=== PATIENT | female | born 1955 | race Caucasian/White ===

== ENCOUNTER 2017-04-02 08:14 | Emergency (ER) | payer BC, OTHER ==
--- NOTE | 2017-04-02 08:32 | EDM.PDOC ---
ED HPI GENERAL MEDICAL PROBLEM - General Chief Complaint: Neurological Problem Stated Complaint: VERTIGO Time Seen by Provider: 04/02/17 08:30 - History of Present Illness INITIAL COMMENTS - FREE TEXT/NARRATIVE: 61-year-old female presents emergency room with vertigo. The patient is visiting here from [facility] the were camping at the [place]. The patient denies any drugs or alcohol. The patient went to a show last evening and prior to going to bed felt a little dehydrated. She did take a walk yesterday but no strenuous activity. She noticed a little bit of neck tightness upon awakening this morning at approximately 7 AM the patient looked to the left to check on her and developed significant dizziness and nausea followed. The patient has been unable to walk without assistance and needed assistance coming into the emergency room. Patient states she had a head injury a couple years ago and had some vertigo after this but has otherwise been doing okay with no dizziness between then and now. The patient was noticed to have benign lesion in her brain. Her last MRI in October was normal. She is followed on an annual basis by neurosurgery for this. At this time the patient seems to be doing okay if she does not move. Looking to the left tends to aggravate the dizziness and nausea. Looking to the right does not bring on symptoms the patient has not noticed any weakness in her arms or legs no difficulty with speech. - Related Data Allergies Allergy/AdvReac Type Severity Reaction Status Date / Time No Known Allergies Allergy Verified 04/02/17 08:25 Home Meds: Home Meds Meclizine [Antivert] 25 mg PO Q6H PRN #20 tab.chew 04/02/17 [Rx] ED ROS GENERAL - Review of Systems Review Of Systems: See Below Constitutional: Reports: No Symptoms HEENT: Reports: Sinus Problem (She has mild sinus congestion no pressure), Vertigo, Other (No ringing or buzzing in her ears). Denies: Ear Pain, Eye Pain Respiratory: Reports: No Symptoms Cardiovascular: Reports: No Symptoms, Other (Patient normally has a low pulse in the 50s and low blood pressure) Endocrine: Reports: No Symptoms GI/Abdominal: Reports: Nausea. Denies: Abdominal Pain, Constipation, Diarrhea, Vomiting : Reports: No Symptoms Musculoskeletal: Reports: Neck Pain (This is normal for her) Neurological: Reports: Dizziness. Denies: Headache Psychiatric: Reports: Other (She has been under a lot of stress otherwise no problems) ED EXAM, GENERAL - Physical Exam Exam: See Below Exam Limited By: No Limitations General Appearance: Alert, No Apparent Distress Eye Exam: Bilateral Eye: EOMI, Normal Inspection, PERRL Ears: Normal External Exam, Normal Canal, Hearing Grossly Normal, Normal TMs Nose: Normal Inspection, Normal Mucosa, No Blood, Other (Sinuses nontender with percussion) Throat/Mouth: Normal Inspection, Normal Lips, Normal Teeth, Normal Gums, Normal Oropharynx, Normal Voice, No Airway Compromise Head: Atraumatic, Normocephalic Neck: Normal Inspection, Supple, Non-Tender, Full Range of Motion. No: Lymphadenopathy (L), Lymphadenopathy (R), Tender Lateral, Tender Midline Respiratory/Chest: No Respiratory Distress, Lungs Clear, Normal Breath Sounds, No Accessory Muscle Use Cardiovascular: Normal Peripheral Pulses, Regular Rate, Rhythm, No Edema, No Gallop, No JVD, No Murmur, No Rub Neurological: Other (Radial nerves II through XII grossly intact all muscle groups in upper and lower extremities recall appropriate bilaterally deep tendon reflexes are equal and appropriate at brachial radialis bilaterally. Hallpike's maneuver done which shows no nystagmus dizziness and nausea aggravated with the patient at full extension looking to the left and after sitting up looking to the left.) Course - Vital Signs Last Recorded V/S: Last Vital Signs Temp 37.0 C 04/02/17 08:25 Pulse 46 L 04/02/17 08:25 Resp 16 04/02/17 08:25 BP 114/64 04/02/17 08:25 Pulse Ox 100 04/02/17 08:25 - Orders/Labs/Meds Orders: Active Orders 24 hr Category Date Time Status Sodium Chloride 0.9% [Saline Flush] Med 04/02/17 11:19 Active 10 ml FLUSH ONETIME PRN Medication Orders Sodium Chloride (Saline Flush) 10 ml FLUSH ONETIME PRN PRN Reason: Keep Vein Open Last Admin: 04/02/17 12:23 Dose: 10 ml Labs: Laboratory Tests 04/02/17 04/02/17 04/02/17 Range/Units 10:00 10:00 10:00 WBC 15.92 H (3.98-10.04) K/mm3 RBC 4.52 (3.98-5.22) M/mm3 Hgb 13.6 (11.2-15.7) gm/L Hct 40.9 (34.1-44.9) % MCV 90.5 (79.4-94.8) fl MCH 30.1 (25.6-32.2) pg MCHC 33.3 (32.2-35.5) g/dl RDW Std Deviation 44.0 (36.4-46.3) fL Plt Count 237 (182-369) K/mm3 MPV 11.0 (9.4-12.3) fl Neutrophils % (Manual) 87 H (40-60) % Band Neutrophils % 0 (0-10) % Lymphocytes % (Manual) 10 L (20-40) % Atypical Lymphs % 0 % Monocytes % (Manual) 3 (2-10) % Eosinophils % (Manual) 0 L (0.7-5.8) % Basophils % (Manual) 0 L (0.1-1.2) Platelet Estimate Adequate RBC Morph Comment Normal ESR 8 (0-20) mm/hr Sodium 144 (136-145) mEq/L Potassium 3.9 (3.5-5.1) mEq/L Chloride 109 H (98-107) mEq/L Carbon Dioxide 26 (21-32) mEq/L Anion Gap 12.9 (5-15) BUN 32 H (7-18) mg/dL Creatinine 0.9 (0.55-1.02) mg/dL Est Cr Clr Drug Dosing 59.07 mL/min Estimated GFR (MDRD) > 60 (>60) mL/min BUN/Creatinine Ratio 35.6 H (14-18) Glucose 133 H (80-115) mg/dL Calcium 9.7 (8.5-10.1) mg/dL Magnesium 2.0 (1.8-2.4) mg/dl Total Bilirubin 0.5 (0.2-1.0) mg/dL AST 17 (15-37) U/L ALT 20 (14-59) U/L Alkaline Phosphatase 65 (46-116) U/L C-Reactive Protein < 0.2 (<1.0) mg/dL Total Protein 6.9 (6.4-8.2) g/dl Albumin 3.7 (3.4-5.0) g/dl Globulin 3.2 gm/dL Albumin/Globulin Ratio 1.2 (1-2) Meds: Medications Generic Name Dose Route Start Last Admin Trade Name Freq PRN Reason Stop Dose Admin Sodium Chloride 10 ml 04/02/17 11:19 04/02/17 12:23 Saline Flush FLUSH 10 ml ONETIME PRN Administration Keep Vein Open Discontinued Medications Generic Name Dose Route Start Last Admin Trade Name Freq PRN Reason Stop Dose Admin Gadobenate Dimeglumine 17 ml 04/02/17 11:19 04/02/17 12:23 Multihance IVPUSH 04/02/17 11:20 17 ml ONETIME ONE Administration Lactated Ringer's 1,000 mls @ 999 mls/hr 04/02/17 09:46 04/02/17 10:00 Ringers, Lactated IV 04/02/17 10:46 999 mls/hr .BOLUS ONE Administration Lactated Ringer's 1,000 mls @ 999 mls/hr 04/02/17 12:32 04/02/17 12:39 Ringers, Lactated IV 04/02/17 13:32 999 mls/hr .BOLUS ONE Administration Ondansetron HCl 4 mg 04/02/17 09:46 04/02/17 10:00 Zofran IVPUSH 04/02/17 09:47 4 mg ONETIME ONE Administration - Re-Assessments/Exams Free Text/Narrative Re-Assessment/Exam: 04/02/17 11:27 We were able to gets patient scheduled for MRI today awaiting results 04/02/17 12:35 Patient has improved somewhat she did get dizzy while trying to stand up to go to the bathroom out of the wheelchair. Awaiting MRI results. Will give her another liter of fluid her nausea is gone we'll try clear liquids followed by more sustaining food if the clear liquids are tolerated. Her labs are unrevealing white count is somewhat elevated at 15,000 mildly elevated segs no bands. BUN is elevated at 32 no significant gap. Inflammatory markers normal. 04/02/17 13:50 Patient was recently up to the bathroom again and did much better she would like to go home at this point. MRI shows no acute changes she does have 2.6 cm extra axial abnormality within the left posterior frontal convexity compatible with a meningioma this is what she has had in the past. Of questionable concern is slightly prominent ventricles in relation to the silk I over the convexities probably due to asymmetric central atrophy however the possibility albeit remote for a normal pressure hydrocephalus was brought up. The patient is not having urinary incontinence no cognitive dysfunction or gait disturbance. She had some difficulty with ambulation related to her dizziness not heavy foot problems seen with normal pressure hydrocephalus however if this continues to be a problem this should be reconsidered. The patient is eating and drinking at this time feels well and would like to go home we will give her prescription for meclizine 25 mg 1/2-1 every 6 hours as needed for dizziness. Caution is advised with using this any more than absolutely necessary as treating vertigo with medications can prolong the duration of the illness she understands this. The patient is scheduled to have orthopedic surgery on Wednesday. This will be done in [place] she needs to try and get seen by a regular physician on Wednesday if at all possible. Departure - Departure Time of Disposition: 13:56 Disposition: Home, Self-Care 01 Clinical Impression: Vertigo - Discharge Information Prescriptions: Meclizine [Antivert] 25 mg PO Q6H PRN #20 tab.chew PRN Reason: Dizziness Referrals: PCP,Not In Area [Primary Care Provider] - Forms: ED Department Discharge Additional Instructions: Return to the emergency room with any questions or problems or worsening symptoms. Push lots of fluids such as Gatorade. You been given a prescription for meclizine, albeit this is [id number] 25 mg. You can take 1/2-1 every 6 hours only if absolutely necessary to control dizziness nausea and vomiting. The preferred treatment for dizziness such as this is physical therapy and doing simple exercises. Try and follow-up with your regular physician on Wednesday back home in [place]. - My Orders Last 24 Hours: My Active Orders 04/02/17 11:19 Sodium Chloride 0.9% [Saline Flush] 10 ml FLUSH ONETIME PRN - Assessment/Plan Last 24 Hours: My Active Orders 04/02/17 11:19 Sodium Chloride 0.9% [Saline Flush] 10 ml FLUSH ONETIME PRN
[2017-04-02] MEDS ORDERED: Ondansetron 4 MG/2 ML SDV IVPUSH ONE (09:46)
[2017-04-02] MEDS ORDERED: Lactated Ringers 1,000 ML IV ONE ×2 (09:46→12:32)
[2017-04-02] MEDS ORDERED: Gadobenate Dimeglumine 529 MG/ML 20 ML SDV IVPUSH ONE (11:19)
[2017-04-02] MEDS ORDERED: Sodium Chloride 0.9% 10 ML Syringe FLUSH PRN (11:19)
--- NOTE | 2017-04-02 12:57 | MR ---
MRI brain (with and without contrast) Technique: T1 sagittal; T2, T2 FLAIR, T1 and diffusion axial; T2 thin gradient echo axial images through the internal auditory canals were obtained. T1 FLAIR coronal; post gadolinium T1 axial, post gadolinium T1 FLAIR coronal and T1 sagittal images were obtained through the brain. Findings: Ventricles are moderately prominent. Mild prominence of the sulci over the convexities are seen. Normal signal void is seen within the major cerebral arteries within the skull base. Slight nodularity of mucosal thickening seen within the right sphenoid sinus versus small retention cyst. This sphenoid sinus finding measures approximately 7 mm and is felt to be incidental. Extra-axial mass is identified within the left posterior frontal convexity. This is isointense to brain on T1 sequence and shows intense enhancement after contrast administration. This finding measures approximately 2.6 x 1.7 cm in the coronal plane. Finding is compatible with meningioma. No other abnormal enhancement is seen within the brain parenchyma. No midline shift is seen. No acute diffusion abnormalities are identified. Several minimal areas of increased signal are seen within the periventricular white matter which is felt to be incidental for the patient's age. Contents of the internal auditory canals appear unremarkable. No cerebellopontine angle cistern mass is seen. Impression: 1. 2.6 cm extra-axial abnormality within the left posterior frontal convexity showing intense enhancement which is felt compatible with meningioma. 2. Slightly prominent ventricles in relation to the sulci over the convexities. This is most likely due to mild asymmetric central atrophy but please exclude any symptoms to suggest normal pressure hydrocephalus. 3. Several minimal areas of increased signal within the periventricular white matter which are felt to be within normal limits for the patient's age. No acute diffusion abnormalities are seen. Diagnostic code #3
[2017-04-02 18:37] VITALS: BP 130/80
== END 2017-04-02 14:50 | disposition home or self-care (01) ==
LOC: JD.ED 08:14
DX: R42 Dizziness and giddiness (principal)
CPT/HCPCS: 36415; 70553; 80053; 83735; 85025; 85652; 86140; 93005; 96361; 96374; 99284; A9577; J2405; J7050; J7120